=== PATIENT | male | born 1995 | race Caucasian/White ===

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

== ENCOUNTER 2017-07-26 19:34 | Inpatient (IN) | payer BC, OTHER ==
[~2017-07-26] VITALS: Ht 177.8 cm; Wt 67.5 kg
[~2017-07-26 19:34] MED LIST changes: -DEXT15TA PO; -DOXY100T PO; -IBUP800T23 PO
[2017-07-26 19:56] VITALS: BP 124/74; PULSE 76; RESP 16; TEMP 97.8; O2SAT 100
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
[2017-07-26 20:59] LABS: AUTOMATED NEUTROPHIL # 4.7 TH/MM3 (1.8-7.7); BASOPHIL % 0.6 % (0.0-2.0); EOSINOPHIL # 0.2 TH/MM3 (0-0.4); LYMPH % 28.4 % (9.0-44.0); LYMPHOCYTE # 2.2 TH/MM3 (1.0-4.8); MEAN CELL VOLUME 84.6 FL (80.0-100.0); MEAN CORPUSCULAR HGB CONC 34.3 % (32.0-36.0); MEAN PLATELET VOLUME 8.2 FL (7.0-11.0); MONO % 6.8 % (0.0-8.0); MONOCYTE # 0.5 TH/MM3 (0-0.9); NEUT % 61.2 % (16.0-70.0); PLATELET COUNT 224 TH/MM3 (150-450); RED BLOOD COUNT 4.84 MIL/MM3 (4.50-5.90); RED CELL DISTRIBUTION WIDTH 13.4 % (11.6-17.2); WHITE BLOOD COUNT 7.8 TH/MM3 (4.0-11.0)
[2017-07-26 21:06] LABS: ALBUMIN 4.6 GM/DL (3.4-5.0); AST (GOT) 24 U/L (15-39); BICARBONATE 24.9 MEQ/L (21.0-32.0); BLOOD UREA NITROGEN 25 MG/DL (7-18); CALCIUM 9.5 MG/DL (8.5-10.1); CHLORIDE 104 MEQ/L (98-107); CREATININE 1.02 MG/DL (0.60-1.30); GLOMERULAR FILTRATION RATE 93 ML/MIN (>89); GLUCOSE,RANDOM 86 MG/DL (74-106); SODIUM (NA) 136 MEQ/L (136-145)
[2017-07-26 21:08] LABS: ALT (GPT) 27 U/L (9-52)
[2017-07-26 21:17] LABS: ALKALINE PHOSPHATASE 76 U/L (45-117); TOTAL BILIRUBIN ADULT 1.8 MG/DL (0.2-1.0); TOTAL PROTEIN 7.4 GM/DL (6.4-8.2)
[2017-07-26] MEDS ORDERED: AMPH1TAB29 PO (22:23)
[2017-07-26 23:43] VITALS: BP 179/98; PULSE 70; RESP 16; TEMP 97.6; O2SAT 100
[2017-07-27] MEDS ORDERED: OLANZapine IM 10 MG VIAL IM ONE (02:00)
[2017-07-27 06:29] VITALS: RESP 17
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
[2017-07-27] MEDS ORDERED: diphenhydrAMINE HCL 50 MG CAP PO ONE (14:00)
[2017-07-27] MEDS ORDERED: OLANZapine 5 MG TAB PO ONE (14:00)
[2017-07-27] MEDS ORDERED: OLANZapine ODT 10 MG TAB PO ONE (14:00)
[2017-07-27 14:05] VITALS: BP 125/66; PULSE 86; RESP 18; O2SAT 100
[2017-07-27] MEDS ORDERED: ACETAMINOPHEN 325 MG TAB PO PRN (15:45)
[2017-07-27] MEDS ORDERED: MAGNESIUM HYDROXIDE SUSP 30 ML CUP PO PRN (15:45)
[2017-07-27] MEDS ORDERED: ALUMINUM/MAGNESIUM/SIMETH 30 ML CUP PO PRN (15:45)
[2017-07-27 17:31] VITALS: BP 149/83; PULSE 86; RESP 18; TEMP 97.5; O2SAT 98
[2017-07-28 05:55] VITALS: BP 147/87; PULSE 63; RESP 18; TEMP 98.6; O2SAT 100
[2017-07-28 07:52] LABS: BICARBONATE 29.9 MEQ/L (21.0-32.0); BLOOD UREA NITROGEN 19 MG/DL (7-18); CALCIUM 10.2 MG/DL (8.5-10.1); CHLORIDE 101 MEQ/L (98-107); CREATININE 0.98 MG/DL (0.60-1.30); GLOMERULAR FILTRATION RATE 98 ML/MIN (>89); GLUCOSE,RANDOM 94 MG/DL (74-106); SODIUM (NA) 137 MEQ/L (136-145)
[2017-07-28 07:53] LABS: CHOLESTEROL 131 MG/DL (120-200); TRIGLYCERIDES 78 MG/DL (42-150)
[2017-07-28 07:55] LABS: HDL CHOLESTEROL 62.2 MG/DL (40.0-60.0); LDL CHOLESTEROL 53 MG/DL (0-99)
[2017-07-28] MEDS ORDERED: INFLUENZA VIRUS VACCINE (QUADRIVALENT) 0.5 ML SYR IM ONE (09:00)
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
[2017-07-28 15:13] LABS: HEMOGLOBIN A1C 5.3 % (4.3-6.0)
[2017-07-28 16:58] VITALS: BP 167/79; PULSE 101
[2017-07-28 17:00] VITALS: BP 148/77; PULSE 95; RESP 19; TEMP 98.8; O2SAT 98
--- NOTE | 2017-07-28 18:17 | RADRPT ---
EXAM DATE/TIME: 07/28/2017 17:54 [facility] COMPARISON: No previous studies available for comparison. INDICATIONS : Psychosis. MEDICAL HISTORY : Asthma. SURGICAL HISTORY : None. ENCOUNTER: Subsequent ACUITY: 1 day PAIN SCORE: 0/10 LOCATION: cranial TECHNIQUE: Multiplanar, multisequence MRI of the brain was performed without contrast. FINDINGS: CEREBRUM: The ventricles are normal for age. No evidence of midline shift, mass lesion, hemorrhage or acute in farction. No extraaxial fluid collections are seen. The pituitary gland and suprasellar cistern are normal in configuration. WHITE MATTER: No significant signal abnormalities are seen in the white matter. POSTERIOR FOSSA: The cerebellum and brainstem are intact. The 4th ventricle is midline. The cerebellopontine angle is unremarkable. The cerebellar tonsils are normal in position. DIFFUSION IMAGING: No focal areas of restricted diffusion are seen. No evidence of acute infarction. EXTRACRANIAL: The visualized portions of the orbits and paranasal sinuses are unremarkable. CONCLUSION: No acute disease. Cale Hardy MD on July 28, 2017 at 18:12 Board Certified Radiologist. This report was verified electronically.
[2017-07-28] MEDS ORDERED: BENZTROPINE MESYLATE 1 MG TAB PO PRN (18:45)
[2017-07-28] MEDS ORDERED: BENZTROPINE MESYLATE 2 MG/2 ML VIAL IM PRN (18:45)
[2017-07-28] MEDS: diphenhydrAMINE HCL 50 MG CAP PO PRN (23:00)
[2017-07-28] MEDS: LORazepam 2 MG/ML VIAL IM PRN (23:30)
[2017-07-28] MEDS: LORazepam 1 MG TAB PO PRN (23:31)
[2017-07-29 05:51] VITALS: BP 110/66; PULSE 55; RESP 18; TEMP 98.8; O2SAT 95
--- NOTE | 2017-07-29 07:19 | MG ---
cc: MARISOL RIVERA MD Lab No: Date: Age: 22 Sex: M INDICATION The patient is a 22-year-old with history of schizophrenia and illicit drug use. DESCRIPTION Very high amplitude EEG, 20-70 microvolts. A lot of movement and myogenic artifact occurring. Then improved with posterior rhythm showing 8-9 Hz activity followed by eye movement and generalized movement artifact. A washcloth is then placed over his eyes which helped reduce the artifact. Generalized slowing transitioned into drowsy state. Waving his hands up in the air then put them down. No epileptic correlation. Generalized bursts of 3-4 Hz activity occurring at epoch 49. Almost a tiny spike wave complex, did not appear to be the case. A lot of head movement with artifact occurring with hyperventilation. Reasonably good driving with photic stimulation. Single lead EKG showing sinus rhythm. INTERPRETATION Mild to moderate artifact; however, relatively normal awake and drowsy EEG. Clinical correlation. Marisol Rivera MD MG/BT /9:24 PM /7:08 AM
--- NOTE | 2017-07-29 13:16 | EKG ---
Date Performed: 07/28/2017 Time Performed: 13:27:38 PTAGE: 22 years EKG: SINUS TACHYCARDIA Vertical QRS axis. Increased voltage. Atrial abnormality. Maybe within no rmal limits for age. When compared to previous tracing, axis is more vertical, and the Atrial abnorma lity is more prominant. Heart rate is slightly faster now. ABNORMAL ECG PREVIOUS TRACING : 10/17/2007 14.17 DOCTOR: Osman Zambrano Interpretating Date/Time 07/29/2017 13:15:36
--- NOTE | 2017-07-29 15:41 | PD.CONS ---
[facility] Requested By Psychiatry team Reason for Consult Abnormal EKG Primary Care Physician No Primary Care Physician Diagnoses: History of Present Illness Patient is a 22-year-old male with no significant primary history who came in under Ash act trying to get out of a moving vehicle. Patient has substance abuse disorder. Patient seen and examined he is now admitted to inpatient psychiatry unit for further evaluation. Consulted for abnormal EKG. Patient seen and examined today with tach at the bedside. Patient is very robotic with answers of yes or no to the question. Flat affect. States he has no other medical issues or surgical issues. Admits to smoking marijuana every day. Denies alcohol use. denies tobacco use. Denies pain and discomfort. Denies SOB/ dyspnea. Denies chest pain, palpitations, headaches, dizziness. Denies fevers, chills, n/v/d. Review of Systems ROS Limitations: Psychotic Past Family Social History Allergies: Coded Allergies: No Known Allergies (Verified Allergy, Unknown, 07/27/17) Past Medical History None Past Surgical History None Reported Medications Reported Meds & Active Scripts Active Reported Adderall (Amphetamine-Dextroamphetamine) 5 Mg Tab 5 Mg PO BID Avoid late evening doses. Space doses at least 4 to 6 hours if more than once/day dosing. Active Ordered Medications Current Medications Medications (Trade) Dose Ordered Sig/Haile Route Start Time Stop Time Status Last Admin (Tylenol) 650 mg Q4H PRN PO 07/27/17 15:45 (Milk Of Magnesia Liq) 30 ml DAILY PRN PO 07/27/17 15:45 (Mag-Al Plus Susp Liq) 30 ml Q6H PRN PO 07/27/17 15:45 (Ativan) 1 mg Q6H PRN PO 07/28/17 18:45 (Ativan Inj) 1 mg Q6H PRN IM 07/28/17 18:45 07/28/17 23:30 (Cogentin) 1 mg Q12HR PRN PO 07/28/17 18:45 (Cogentin Inj) 1 mg Q12HR PRN IM 07/28/17 18:45 (Benadryl) 50 mg HS PRN PO 07/28/17 18:45 07/28/17 23:00 Family History Denies any significant family medical history Social History Denies alcohol use Denies tobacco use Reports every day use of marijuana Physical Exam Vital Signs Vital Signs Date Time Temp Pulse Resp B/P (MAP) Pulse Ox O2 Delivery O2 Flow Rate FiO2 07/29/17 05:51 98.8 55 18 110/66 (81) 95 07/28/17 17:00 98.8 95 19 148/77 (100) 98 07/28/17 16:58 101 167/79 (108) Physical Exam GENERAL: This is a thin-appearing, well-developed patient, in no apparent distress. SKIN: No rashes, ecchymoses or lesions. Cool and dry. HEAD: Normocephalic. No temporal or scalp tenderness. EYES: Pupils equal round and reactive. Extraocular motions intact. No scleral icterus. No injection or drainage. ENT: Nose without bleeding. Throat without erythema. Uvula midline. Airway patent. NECK: Trachea midline. CARDIOVASCULAR: Regular rate and rhythm without murmurs, gallops, or rubs. RESPIRATORY: Clear to auscultation. Breath sounds equal bilaterally. No wheezes , rales, or rhonchi. GASTROINTESTINAL: Abdomen soft, non-tender, nondistended. No guarding. Bowel sounds active 4. MUSCULOSKELETAL: Extremities without clubbing, cyanosis, or edema. NEUROLOGICAL: Awake and alert. Flat affect. Cranial nerves II through XII intact. Motor and sensory grossly within normal limits. Speech appears to have Apraxia - Robot speech. Result Diagram: 07/26/17201907/28/17 0656 Imaging Last Impressions Brain MRI 07/28/17 0000 Signed Impressions: Service Date/Time: Friday, July 28, 2017 17:54 - CONCLUSION: No acute disease. Cale Hardy MD Assessment and Plan Problem List: (1) Cannabis abuse ICD Code: F12.10 - Cannabis abuse, uncomplicated (2) Psychosis ICD Code: F29 - Unspecified psychosis not due to a substance or known physiological condition Status: Acute Assessment and Plan Patient is a 22-year-old male with no significant primary history who came in under Ash act trying to get out of a moving vehicle. Patient has substance abuse disorder. Patient seen and examined he is now admitted to inpatient psychiatry unit for further evaluation. Consulted for abnormal EKG. Psychosis Marijuana use - Counseled - Managed by psychiatry team Abnormal EKG Tachycardia - Labs are within normal - TSH within normal - EKG reviewed sinus tachycardia, otherwise no ST changes noted, no QT prolongation noted - Will repeat EKG - Tachycardia may be related to substance withdrawal. Patient was also noted to have Adderall as part of his medication list however he is unable to tell what is for nor he has any other medical condition. - Monitor and f/u EKG. DVT prop ambulatory Code Status Full code Discussed Condition With Patient, nursing Problem Qualifiers (1) Psychosis: Qualified Codes: F29 - Unspecified psychosis not due to a substance or known physiological condition Odilia De Los Santos Jul 29, 2017 15:40
--- NOTE | 2017-07-29 17:22 | HHI.PYPN ---
Subjective Chief Complaint: Psychosis Remarks Is a request for second opinion. Admission note was reviewed and I agree with his history. Patient was seen and case was discussed with nursing. Patient remains bizarre in thought and behavior throughout the day. He makes bizarre hand movements during her interview and has a bizarre gait down the hallway. Patient says he also hears voices that began 2-3 days ago. He admits to smoking marijuana but denies other drugs. Not on antipsychotics at this time. Diagnosis is unclear. Mental Status Examination Appearance: Appropriate Consciousness: Alert Orientation: x4 Motor Activity: Normal gait Speech: Hesitant, Slow Language: Adequate Fund of Knowledge: Inadequate Attention and Concentration: Easily Distracted Memory: Impaired (poor historian) Mood: Other (reports unstable mood) Affect: Flat Thought Process & Associations: Other (slowed) Thought Content: Hallucinations, Thought blocking, Delusional Hallucination Type: Auditory (appears internally stimulated) Delusion Type: Other (ideas of reference, possibly episcopal delusions) Suicidal Ideation: No (unreliable to contract for safety) Suicidal Plan: No Suicidal Intention: No Homicidal Ideation: No (unreliable contract for safety) Homicidal Plan: No Homicidal Intention: No Insight: Poor Judgment: Poor Results Vitals/IOs Vital Signs Date Time Temp Pulse Resp B/P (MAP) Pulse Ox O2 Delivery O2 Flow Rate FiO2 07/29/17 05:51 98.8 55 18 110/66 (81) 95 07/27/17 14:05 Room Air Assessment & Plan Problem List: (1) 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 Criteria include acute psychosis Justification for Cont. Inpt. Patient would decompensate in a less restrictive setting Request HC Surrog/Guard Advoc?: Yes Miguel Rosa DO Jul 29, 2017 17:21
[2017-07-29 19:16] VITALS: BP 136/69; PULSE 96; RESP 17; TEMP 99.2; O2SAT 100
[2017-07-29] MEDS: diphenhydrAMINE HCL 50 MG CAP PO PRN (20:25)
[2017-07-29] MEDS: LORazepam 1 MG TAB PO PRN (23:35)
[2017-07-30 05:58] VITALS: BP 149/79; PULSE 86; RESP 16; TEMP 97.7
[2017-07-30] MEDS: CHOLECALCIFEROL (VIT D3) 1000 UNIT TAB PO SCH (09:41)
--- NOTE | 2017-07-30 12:03 | EKG ---
Date Performed: 07/29/2017 Time Performed: 17:46:08 PTAGE: 22 years EKG: SINUS TACHYCARDIA POSSIBLE RIGHT ATRIAL ENLARGEMENT LEFT VENTRICULAR HYPERTROPHY AND ST-T C HANGE ABNORMAL ECG Tracing may be within normal limits for a 22-year-old. Since PREVIOUS TRACING , no significant change noted. PREVIOUS TRACIN07/28/2017 13.27 DOCTOR: Osman Zambrano Interpretating Date/Time 07/30/2017 12:03:07
--- NOTE | 2017-07-30 14:26 | HHI.PR ---
Subjective Remarks Follow-up visit tachycardia. Patient seen and examined today. States he is doing well. Patient is a lot better in responding to questions and commands. Noted auditory hallucinations. Every time I asked question the patient would turn his head around and attempts to talk to somebody else. States that he has been taking Adderall since he was 19 years old and it did not really help him. States he uses it to help him focus. Admits to auditory hallucinations but does not want to elaborate what he is hearing. Denies pain and discomfort. Denies SOB/ dyspnea. Denies chest pain, palpitations, headaches, dizziness. Denies fevers, chills, n/v/d. Objective Vitals Vital Signs Date Time Temp Pulse Resp B/P (MAP) Pulse Ox O2 Delivery O2 Flow Rate FiO2 07/30/17 05:58 97.7 86 16 149/79 (102) 07/29/17 19:16 99.2 96 17 136/69 (91) 100 Result Diagram: 07/26/17201907/28/17 0656 Imaging Last Impressions Brain MRI 07/28/17 0000 Signed Impressions: Service Date/Time: Friday, July 28, 2017 17:54 - CONCLUSION: No acute disease. Cale Hardy MD Objective Remarks GENERAL: This is a well-nourished, well-developed patient, in no apparent distress. SKIN: Warm and dry HEENT: Normocephalic. Pupils equal round and reactive. Nose without bleeding. Airway patent. NECK: Trachea midline. No JVD. Supple. CARDIOVASCULAR: Regular rate and rhythm without murmurs, gallops, or rubs. RESPIRATORY: Clear to auscultation. Breath sounds equal bilaterally. No wheezes , rales, or rhonchi. GASTROINTESTINAL: Abdomen soft, non-tender, nondistended. Bowel Sounds normoactive x4. MUSCULOSKELETAL: Extremities without clubbing, cyanosis, or edema. NEUROLOGICAL: Awake and alert. Flat affect. No focal neuro deficit. Moves all extremities. Normal speech. A/P Problem List: (1) Cannabis abuse ICD Code: F12.10 - Cannabis abuse, uncomplicated (2) Psychosis ICD Code: F29 - Unspecified psychosis not due to a substance or known physiological condition Status: Acute Assessment and Plan Patient is a 22-year-old male with no significant primary history who came in under Ash act trying to get out of a moving vehicle. Patient has substance abuse disorder. Patient seen and examined he is now admitted to inpatient psychiatry unit for further evaluation. Consulted for abnormal EKG. Psychosis Marijuana use - Counseled - Managed by psychiatry team Abnormal EKG Tachycardia - Labs are within normal - TSH within normal - EKG reviewed sinus tachycardia, otherwise no ST changes noted, no QT prolongation noted - Tachycardia may be related to substance withdrawal. Patient was also noted to have Adderall as part of his medication list however he is unable to tell what is for nor he has any other medical condition. - Repeat EKG reviewed sinus tachycardia with no ST changes noted. No QT prolongation noted. - On exam patient is in sinus rhythm rate of 96. - Will clear patient for antipsychotic medication use. DVT prop ambulatory Discussed with patient, nursing, Dr. Guadarrama, Dr. Rosa Problem Qualifiers (1) Psychosis: Qualified Codes: F29 - Unspecified psychosis not due to a substance or known physiological condition Odilia De Los Santos Jul 30, 2017 14:26
--- NOTE | 2017-07-30 15:23 | HHI.PYPN ---
Subjective Chief Complaint: Psychosis Remarks Patient was seen and case discussed with nursing. Patient remains grossly psychotic with various bizarre delusions. Prominent thought blocking and is talking to voices during the interview. Continues a bizarre behavior including defecating on the floor and masturbating into a cup and carrying it around per nursing. Mental Status Examination Appearance: Appropriate Consciousness: Alert Orientation: x4 Motor Activity: Normal gait Speech: Hesitant, Slow Language: Adequate Fund of Knowledge: Inadequate Attention and Concentration: Easily Distracted Memory: Impaired (poor historian) Mood: Other (reports unstable mood) Affect: Flat Thought Process & Associations: Loose associations Thought Content: Hallucinations, Thought blocking, Delusional Hallucination Type: Auditory (appears internally stimulated) Delusion Type: Other (ideas of reference, possibly yarsani delusions) Suicidal Ideation: No (unreliable to contract for safety) Suicidal Plan: No Suicidal Intention: No Homicidal Ideation: No (unreliable contract for safety) Homicidal Plan: No Homicidal Intention: No Insight: Poor Judgment: Poor Results Labs Test 07/29/17 17:59 Erythrocyte Sedimentation Rate 1 mm/hr Ammonia 29 MCMOL/L Vitamin B12 Level 708 PG/ML 25-Hydroxy Vitamin D Total 24.0 ng/ML Vitals/IOs Vital Signs Date Time Temp Pulse Resp B/P (MAP) Pulse Ox O2 Delivery O2 Flow Rate FiO2 07/30/17 05:58 97.7 86 16 149/79 (102) 07/29/17 19:16 100 07/27/17 14:05 Room Air Assessment & Plan Problem List: (1) 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 Justification for Cont. Inpt. Patient would decompensate in a less restrictive setting Request HC Surrog/Guard Advoc?: Yes Miguel Rosa DO Jul 30, 2017 15:23
[2017-07-30] MEDS ORDERED: risperiDONE 1 MG TAB PO SCH (15:30)
[2017-07-30 17:30] VITALS: BP 143/78; PULSE 95; RESP 16; TEMP 99.7; O2SAT 98
[2017-07-30] MEDS: diphenhydrAMINE HCL 50 MG CAP PO PRN (20:50)
[2017-07-30] MEDS: risperiDONE 1 MG TAB PO SCH (20:50)
[2017-07-30] MEDS: LORazepam 2 MG/ML VIAL IM PRN (22:54)
[2017-07-31 05:48] VITALS: BP 106/65; PULSE 108; RESP 18; TEMP 97.5; O2SAT 98
[2017-07-31] MEDS: risperiDONE 1 MG TAB PO SCH ×2 (08:17→20:55)
[2017-07-31] MEDS: CHOLECALCIFEROL (VIT D3) 1000 UNIT TAB PO SCH (08:17)
--- NOTE | 2017-07-31 10:00 | HHI.PYPN ---
Subjective Chief Complaint: Psychosis Remarks Patient seen and examined with nurse. Chart reviewed. Case discussed with nursing staff who reports patient remains quite disorganized and psychotic. He is noted to be internally stimulated. He is reportedly somewhat oppositional and nursing interaction. Nursing staff notes that the patient has been wandering around with a cup of his bodily fluids including his semen. On my exam, patient remains quite disorganized. He appears internally stimulated. When I ask about hallucinations, he says he is hearing "natural things." No reported CAH. Behavior remains disorganized, and midway through our discussion , patient crouches on the floor for no reason. He denies HI but is noncommittal regarding SI. He does not report any urge to hurt himself on the inpatient psychiatric unit. No side effects from medications. No physical complaints. Spoke with patient's mother/healthcare surrogate over the phone. She notes that the patient seemed a little better Monday and then slid backwards Monday. We discussed titrating Risperdal to target psychotic symptoms and also to consider adding Ambien for sleep as patient is reportedly not sleeping terribly well with Benadryl. She would like to discuss the matter with patient' s father and get back to us. Review of Systems ROS Limitations: Psychotic, Poor Historian Except as stated in HPI: all other systems reviewed are Neg Mental Status Examination Appearance: Disheveled Consciousness: Alert Orientation: x4 Motor Activity: Normal gait, Other (no motor abnormalities noted) Speech: Hesitant, Slow Language: Adequate Fund of Knowledge: Inadequate Attention and Concentration: Easily Distracted Memory: Impaired (psychosis interferes) Mood: Other (calm) Affect: Flat Thought Process & Associations: Disorganized Thought Content: Hallucinations, Thought blocking, Delusional Hallucination Type: Auditory (remains internally stimulated) Delusion Type: Other (ideas of reference) Suicidal Ideation: No (noncommittal re: SI. No reported urge to hurt himself on the inpatient psychiatric unit.) Suicidal Plan: No Suicidal Intention: No Homicidal Ideation: No (unreliable contract for safety) Homicidal Plan: No Homicidal Intention: No Insight: Poor Judgment: Poor Results Labs Labs reviewed. FLAQUITO and serologies are still pending. Extended urine toxicology pending. 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 Recommend addition of Ambien for sleep to replace Benadryl. Continue to monitor on high acuity unit. Continue other medications and care as ordered. Justification for Cont. Inpt. Impairment in reality construction. Planned medication changes. High risk for decompensation in less restrictive environment. Discharge Planning Pending psychiatric stabilization. Case discussed with counselor. Request HC Surrog/Guard Advoc?: Yes Silvano Mitchell MD Jul 31, 2017 10:00
[2017-07-31] MEDS: LORazepam 1 MG TAB PO PRN ×2 (14:10→21:46)
[2017-07-31 15:49] LABS: HEPATITIS A AB IGM NEGATIVE (NEGATIVE); HEPATITIS B CORE AB IGM NEGATIVE (NEGATIVE); HEPATITIS B SURFACE ANTIGEN NEGATIVE (NEGATIVE); HEPATITIS C AB IgG NEGATIVE (NEGATIVE)
[2017-07-31 16:09] VITALS: BP 131/79; PULSE 101; RESP 18; TEMP 98.7; O2SAT 98
[2017-07-31 17:09] LABS: ANA SCREEN NEG (NEG)
[2017-08-01 05:43] VITALS: BP 123/64; PULSE 88; RESP 18; TEMP 98.5; O2SAT 100
[2017-08-01] MEDS: risperiDONE 1 MG TAB PO SCH ×2 (08:45→20:58)
[2017-08-01] MEDS: CHOLECALCIFEROL (VIT D3) 1000 UNIT TAB PO SCH (08:45)
--- NOTE | 2017-08-01 11:00 | HHI.PR ---
Subjective Remarks Follow up for tachycardia. The patient is seen in the day room. He has no medical complaints including no headache, lightheadedness, dizziness, chest pain , palpitations, or shortness of breath. He states he is upset and wants to be transferred to another unit. He states he is just "sick of these people". He denies any prior history or family history of arrhythmias. RN reports the patient mostly paces the halls and is typically upset. Suspect tachycardia secondary to intermittent agitation. No other medical complaints reported. Objective Vitals Vital Signs Date Time Temp Pulse Resp B/P (MAP) Pulse Ox O2 Delivery O2 Flow Rate FiO2 08/01/17 05:43 98.5 88 18 123/64 (83) 100 07/31/17 16:09 98.7 101 18 131/79 (96) 98 Result Diagram: 07/28/17 0656 Imaging Last Impressions Brain MRI 07/28/17 0000 Signed Impressions: Service Date/Time: Friday, July 28, 2017 17:54 - CONCLUSION: No acute disease. Cale Hardy MD Objective Remarks GENERAL: Well-nourished, well-developed young male patient in [facility]. SKIN: Warm and dry. No rash. HEENT: Normocephalic. Atraumatic. Pupils equal and round. Mucous membranes pink and moist. NECK: Supple. Trachea midline. CARDIOVASCULAR: Borderline tachycardic rate, regular rhythm. S1, S2 noted. No murmur appreciated. RESPIRATORY: No accessory muscle use. Clear to auscultation. Breath sounds equal bilaterally. GASTROINTESTINAL: Abdomen soft, non-tender, nondistended. Normoactive bowel sounds x4. MUSCULOSKELETAL: No obvious deformities. Extremities without clubbing, cyanosis , or edema. NEUROLOGICAL: Awake and alert. No obvious cranial nerve deficits. Motor grossly within normal limits. Normal speech. Medications and IVs Current Medications Medications (Trade) Dose Ordered Sig/Haile Route Start Time Stop Time Status Last Admin (Tylenol) 650 mg Q4H PRN PO 07/27/17 15:45 (Milk Of Magnesia Liq) 30 ml DAILY PRN PO 07/27/17 15:45 (Mag-Al Plus Susp Liq) 30 ml Q6H PRN PO 07/27/17 15:45 (Ativan) 1 mg Q6H PRN PO 07/28/17 18:45 08/01/17 12:59 (Ativan Inj) 1 mg Q6H PRN IM 07/28/17 18:45 07/30/17 22:54 (Cogentin) 1 mg Q12HR PRN PO 07/28/17 18:45 (Cogentin Inj) 1 mg Q12HR PRN IM 07/28/17 18:45 (Benadryl) 50 mg HS PRN PO 07/28/17 18:45 07/30/17 20:50 (Vitamin D3) 1,000 units DAILY PO 07/30/17 09:00 08/01/17 08:45 (risperDAL) 1 mg Q12HR PO 07/30/17 21:00 08/01/17 08:45 A/P Problem List: (1) Cannabis abuse ICD Code: F12.10 - Cannabis abuse, uncomplicated (2) Psychosis ICD Code: F29 - Unspecified psychosis not due to a substance or known physiological condition Status: Acute Assessment and Plan 22-year-old male with no significant medical history, admitted to inpatient psychiatry under Ash act after trying to get out of a moving vehicle. Patient has substance abuse disorder. Hospitalists consulted for abnormal EKG. Psychosis, Marijuana use -Counseled on cessation from all drugs -Continue management per psychiatry team Abnormal EKG, Tachycardia: intermittent tachycardia suspect secondary to intermittent agitation. Labs reviewed, all wnl. -EKG reviewed, shows sinus tachycardia, otherwise no ST changes noted, no QT prolongation -Tachycardia may be related to substance withdrawal, also previously on Adderall. -Repeat EKG reviewed sinus tachycardia with no ST changes noted. No QT prolongation noted. -Patient cleared for antipsychotic medication use. -Strongly suspect tachycardia secondary to intermittent agitation; also patient constantly ambulating halls -HR stable in the 90s DVT prophylaxis: patient is ambulatory Discharge Planning The patient is medically stable at this time, will sign off. Please contact [facility] or reconsult as needed. Problem Qualifiers (1) Psychosis: Qualified Codes: F29 - Unspecified psychosis not due to a substance or known physiological condition Kirstin Griggs PA-C Aug 01, 2017 11:00 am
--- NOTE | 2017-08-01 12:18 | HHI.PYPN ---
Subjective Chief Complaint: Psychosis Remarks Patient seen and examined with nurse. Chart reviewed. Patient is sleeping a little better and continues to eat well. Case discussed with nursing staff who reports patient remains bizarre. Nurse notes that patient's parents called back and are agreeable to titration of Risperdal. Case discussed in treatment team. On my exam, patient remains oddly related and internally stimulated. He endorses AH saying "we're gonna make you callahan." He denies questioning his sexuality and notes that he has a girlfriend. Makes odd statements at times, mentioning sign language apropos of nothing. Denies side effects from medications. No physical complaints. Review of Systems ROS Limitations: Psychotic, Poor Historian Except as stated in HPI: all other systems reviewed are Neg Mental Status Examination Appearance: Disheveled Consciousness: Alert Orientation: x4 Motor Activity: Normal gait, Other (no hand tremor, no cogwheeling, no other motoric abnormalities noted.) Speech: Hesitant, Slow Language: Adequate Fund of Knowledge: Inadequate Attention and Concentration: Easily Distracted Memory: Impaired (psychosis interferes) Mood: Other (calm) Affect: Flat Thought Process & Associations: Tangential Thought Content: Hallucinations, Thought blocking, Delusional Hallucination Type: Auditory (again internally stimulated) Delusion Type: Bizarre Suicidal Ideation: No (noncommittal re: SI. No reported urge to hurt himself on the inpatient psychiatric unit.) Suicidal Plan: No Suicidal Intention: No Homicidal Ideation: No (unreliable contract for safety) Homicidal Plan: No Homicidal Intention: No Insight: Poor Judgment: Poor Results Labs Labs reviewed. Only outstanding lab at this point is extended urine toxicology screen. Workup for organic causes of psychosis has been unrevealing. 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 Consulted the dietitian as I note the patient's BMI is fairly low. He does seem to be eating well though. Continue to monitor on the inpatient unit. Continue other medications and care as ordered. Justification for Cont. Inpt. Med changes. Impairment in reality construction. Risk for decompensation in less restrictive environment. Discharge Planning Pending psychiatric stabilization. Request HC Surrog/Guard Advoc?: Yes Silvano Mitchell MD Aug 01, 2017 12:17
[2017-08-01] MEDS: LORazepam 1 MG TAB PO PRN (12:59)
--- NOTE | 2017-08-01 14:34 | PD.TTN ---
Patient Problems 1. Discharge planning 2. Medication compliance 3. Knowledge deficit 4. Lack of coping skills Progress Toward Goals Provider Present: Dr. Martin Mitchell Provider Input: Pt remains psychotic and medication regiment is being adjusted including titration of Risperdal. Nurse(s) Present: Anaid Elena, RN Nurse(s) Input: Pt has been laughing inappropriately, bizarre, pleasant, cooperative and compliant with medication regiment. Psychiatric Counselors Present: SILVERIO Burns Psych Therapist Input: Pt continues to appear psychotic, bizarre, appropriate, cooperative and compliant with treatment. He presents with limited insight and judgment into condition and need for care. Pt presents with some level of coping and emotional regulation skills as he has had no outbursts on unit. He is compliant with medication regiment. Group Spec/RT/OT/ARTHUR Present: LAI Solares Group Spec/RT/OT/ARTHUR Input: Pt isolates to his room, needs encouragement to attend the group activities. Discharge Plan SMA Pt will return home with his family after discharge and will be linked to outpatient psychiatric follow up services. Documentation Scribe: SILVERIO Burns Jonathan LMHC Aug 01, 2017 14:34
[2017-08-01 18:12] VITALS: BP 121/67; PULSE 92; RESP 17; TEMP 98.7; O2SAT 99
[2017-08-02 05:39] VITALS: BP 138/75; PULSE 107; RESP 18; TEMP 97.8; O2SAT 100
[2017-08-02] MEDS: risperiDONE 1 MG TAB PO SCH ×2 (08:51→20:24)
[2017-08-02] MEDS: CHOLECALCIFEROL (VIT D3) 1000 UNIT TAB PO SCH (08:51)
--- NOTE | 2017-08-02 08:51 | HHI.PYPN ---
Subjective Chief Complaint: Psychosis Remarks Patient seen and examined with nurse. Chart reviewed. Case discussed with nursing staff. On my examination today, the patient remains internally preoccupied. He says that this is "just my conscience speaking some truths." When I asked what truths he is hearing he tells me "there is nothing going on now." He denies any SI or HI but seems unreliable to contract for safety. Affect remains quite flat. He is somewhat more relevant in conversation and is able to speak about his surfing hobby with the nurse a little bit. Denies side effects from medications. No physical complaints. Spoke with patient's father/healthcare surrogate Guillermo over the phone. We discussed patient's progress on the unit and treatment plan going forward. Father would like to see patient gets some chemical dependency treatment after acute psychiatric stabilization. Review of Systems ROS Limitations: Psychotic, Poor Historian Except as stated in HPI: all other systems reviewed are Neg Mental Status Examination Appearance: Disheveled Consciousness: Alert Orientation: x4 Motor Activity: Other (no motor abnormalities noted. No EPS.) Speech: Hesitant, Slow Language: Adequate Fund of Knowledge: Inadequate Attention and Concentration: Easily Distracted Memory: Unremarkable Mood: Other (calm) Affect: Flat Thought Process & Associations: Other (thought process somewhat more organized today) Thought Content: Hallucinations, Thought blocking Hallucination Type: Auditory (as noted above) Delusion Type: None Suicidal Ideation: No (unreliable to contract for safety) Suicidal Plan: No Suicidal Intention: No Homicidal Ideation: No (unreliable to contract for safety) Homicidal Plan: No Homicidal Intention: No Insight: Poor Judgment: Poor Results Labs Labs reviewed. Vitals/IOs Vital Signs Date Time Temp Pulse Resp B/P (MAP) Pulse Ox O2 Delivery O2 Flow Rate FiO2 08/02/17 05:39 97.8 107 18 138/75 (96) 100 Assessment & Plan Problem List: (1) Brief psychotic disorder ICD Codes: F23 - Brief psychotic disorder (2) Cannabis abuse ICD Codes: F12.10 - Cannabis abuse, uncomplicated Assessment & Plan Perhaps some modest response to Risperdal titration. Continue Risperdal 2mg BID with plans to titrate to 3mg BID tomorrow to target psychotic symptoms. Continue to monitor on the inpatient unit. Continue other medications and care as ordered. Justification for Cont. Inpt. Anticipated medication changes. Impairment in reality construction. Risk for decompensation and less restrictive environment. Discharge Planning [place] tomorrow. Pending psychiatric stabilization. Request HC Surrog/Guard Advoc?: Yes Silvano Mitchell MD Aug 02, 2017 08:51
[2017-08-02 16:46] VITALS: BP 126/61; PULSE 94; RESP 18; TEMP 97.3; O2SAT 100
[2017-08-03 06:08] VITALS: BP 142/79; PULSE 96; RESP 18; TEMP 97.6; O2SAT 99
[2017-08-03] MEDS: CHOLECALCIFEROL (VIT D3) 1000 UNIT TAB PO SCH (09:00)
[2017-08-03] MEDS: risperiDONE 1 MG TAB PO SCH (09:00)
--- NOTE | 2017-08-03 11:22 | HHI.PYPN ---
Subjective Chief Complaint: Psychosis Remarks Patient seen and case discussed with nursing staff. Chart reviewed. For me today, patient considerably more organized. Some vague responses. Some ongoing internal preoccupation. No SI or HI. No evident side effects from medications. Case presented to [place] and placed in continuance for 2 weeks by the election judge with father to serve as healthcare surrogate. Parents were present for [employer]. Review of Systems ROS Limitations: Psychotic, Poor Historian Other No physical complaints Mental Status Examination Appearance: Other (grooming is improved) Consciousness: Alert Orientation: x4 Motor Activity: Other (no abnormal motor movements noted) Speech: Unremarkable Language: Adequate (somewhat vague in content) Fund of Knowledge: Inadequate Attention and Concentration: Easily Distracted (improving) Memory: Unremarkable Mood: Other (calm) Affect: Flat Thought Process & Associations: Other (thought process somewhat more organized today) Thought Content: Hallucinations Hallucination Type: Other (internal preoccupation is decreasing) Delusion Type: None Suicidal Ideation: No (no SI voiced) Homicidal Ideation: No (no HI voiced) Insight: Poor Judgment: Poor Results Labs Labs reviewed. Extended urine toxicology positive only for cannabinoids. Vitals/IOs Vital Signs Date Time Temp Pulse Resp B/P (MAP) Pulse Ox O2 Delivery O2 Flow Rate FiO2 08/03/17 06:08 97.6 96 18 142/79 (100) 99 Assessment & Plan Problem List: (1) Brief psychotic disorder ICD Codes: F23 - Brief psychotic disorder (2) Cannabis abuse ICD Codes: F12.10 - Cannabis abuse, uncomplicated Assessment & Plan Titrate Risperdal to 3 mg twice daily to target psychosis. Continue to monitor on the inpatient unit although we will endeavor to transfer the patient to the lower acuity unit today if a bed is available. Continue other medications and care as ordered. Justification for Cont. Inpt. Med changes. Resolving impairment in reality construction. Risk for decompensation in less restrictive environment. Discharge Planning Pending psychiatric stabilization. Case discussed with counselor. Request HC Surrog/Guard Advoc?: Yes Silvano Mitchell MD Aug 03, 2017 11:21
[2017-08-03 16:45] VITALS: BP 157/71; PULSE 105; RESP 18; TEMP 98.3; O2SAT 98
[2017-08-03] MEDS: risperiDONE 3 MG TAB PO SCH (20:03)
[2017-08-04 05:37] VITALS: BP 117/67; PULSE 100; RESP 17; TEMP 97.9; O2SAT 98
[2017-08-04] MEDS: risperiDONE 3 MG TAB PO SCH ×2 (08:33→21:05)
[2017-08-04] MEDS: CHOLECALCIFEROL (VIT D3) 1000 UNIT TAB PO SCH (08:33)
--- NOTE | 2017-08-04 11:38 | HHI.PYPN ---
Subjective Chief Complaint: Psychosis Remarks Patient seen and examined with nurse. Chart reviewed. Case discussed with nursing staff who notes patient seems more aware of his surroundings. Case discussed in treatment team. Therapists note that the patient is more able to attend in groups with the benefit of treatment. On my examination today, the patient reports that he is feeling improved. He feels like he is clearer thinking. Mood is good, although affect remains fairly blunted. He denies audiovisual hallucinations. He denies suicidal or homicidal ideation. I have received a message from his father who is apparently trying to have the patient placed in a 90 day treatment program, perhaps for chemical dependency issues. I have discussed the possibility of such a placement with the patient, and he says that he would "rather just go home and chill." Denies side effects from medications. No physical complaints. I did try to reach out the patient's father/healthcare surrogate today. I left him a generic voicemail requesting a call back. Review of Systems ROS Limitations: Psychotic Except as stated in HPI: all other systems reviewed are Neg Mental Status Examination Appearance: Appropriate Consciousness: Alert Orientation: x4 Motor Activity: Other (no hand tremor, no cogwheeling, no dystonia, no dyskinesia, no other motor abnormalities noted.) Speech: Unremarkable Language: Adequate Fund of Knowledge: Adequate Attention and Concentration: Adequate Memory: Unremarkable Mood: Good Affect: Blunt Thought Process & Associations: Intact Thought Content: Appropriate Hallucination Type: None Delusion Type: None Suicidal Ideation: No Suicidal Plan: No Suicidal Intention: No Homicidal Ideation: No Homicidal Plan: No Homicidal Intention: No Insight: Poor Judgment: Poor Results Labs Labs reviewed. Vitals/IOs Vital Signs Date Time Temp Pulse Resp B/P (MAP) Pulse Ox O2 Delivery O2 Flow Rate FiO2 08/04/17 05:37 97.9 100 17 117/67 (20) 98 Assessment & Plan Problem List: (1) Brief psychotic disorder ICD Codes: F23 - Brief psychotic disorder (2) Cannabis abuse ICD Codes: F12.10 - Cannabis abuse, uncomplicated Assessment & Plan Continue Risperdal 3 mg twice daily as ordered for management of psychosis. Transfer to lower acuity unit today. Continue to monitor on an inpatient unit. Continue other medications and care as ordered. Justification for Cont. Inpt. Resolving impairments in reality construction. Risk for decompensation in less restrictive environment. Discharge Planning Pending psychiatric stabilization, possible discharge beginning or middle of next week. Request HC Surrog/Guard Advoc?: Yes Silvano Mitchell MD Aug 04, 2017 11:38
[2017-08-05 05:50] VITALS: BP 138/78; PULSE 107; RESP 18; TEMP 97.4; O2SAT 98
[2017-08-05] MEDS: CHOLECALCIFEROL (VIT D3) 1000 UNIT TAB PO SCH (10:28)
[2017-08-05] MEDS: risperiDONE 3 MG TAB PO SCH ×2 (10:28→20:28)
--- NOTE | 2017-08-05 17:01 | HHI.PYPN ---
Subjective Chief Complaint: Psychosis Remarks Pt seen and discussed with staff. He is compliant with medications and care. He attended therapeutic groups and visited with family today. No aggression or behavioral problems today. He denies SI/HI Mental Status Examination Appearance: Appropriate Consciousness: Alert Orientation: x4 Motor Activity: Other (no hand tremor, no cogwheeling, no dystonia, no dyskinesia, no other motor abnormalities noted.) Speech: Unremarkable Language: Adequate Fund of Knowledge: Adequate Attention and Concentration: Adequate Memory: Unremarkable Mood: Good Affect: Blunt Thought Process & Associations: Intact Thought Content: Appropriate Hallucination Type: None Delusion Type: None Suicidal Ideation: No Suicidal Plan: No Suicidal Intention: No Homicidal Ideation: No Homicidal Plan: No Homicidal Intention: No Insight: Poor Judgment: Poor Results Vitals/IOs Vital Signs Date Time Temp Pulse Resp B/P (MAP) Pulse Ox O2 Delivery O2 Flow Rate FiO2 08/05/17 05:50 97.4 107 18 138/78 (98) 98 Assessment & Plan Problem List: (1) Brief psychotic disorder ICD Codes: F23 - Brief psychotic disorder (2) Cannabis abuse ICD Codes: F12.10 - Cannabis abuse, uncomplicated Assessment & Plan Pt improving. continue current tx plan Estimated LOS: days Justification for Cont. Inpt. risk of decompensation Request HC Surrog/Guard Advoc?: Yes Sheree Robin MD Aug 05, 2017 17:01
[2017-08-05 18:00] VITALS: BP 133/72; PULSE 82; RESP 18; TEMP 98.2; O2SAT 99
[2017-08-06 05:36] VITALS: BP 106/55; PULSE 72; RESP 18; TEMP 98; O2SAT 98
[2017-08-06] MEDS: risperiDONE 3 MG TAB PO SCH ×2 (09:00→21:12)
[2017-08-06] MEDS: CHOLECALCIFEROL (VIT D3) 1000 UNIT TAB PO SCH (09:00)
--- NOTE | 2017-08-06 13:26 | HHI.PYPN ---
Subjective Chief Complaint: Psychosis Remarks Pt seen and discussed with staff. He has been withdrawn and in room most of the day, but did go out for fresh air today. He is flat with poor eye contact and appears at times to be internally stimulated. He c/o of anxiety Mental Status Examination Appearance: Appropriate Consciousness: Alert Orientation: x4 Motor Activity: Other (no hand tremor, no cogwheeling, no dystonia, no dyskinesia, no other motor abnormalities noted.) Speech: Unremarkable Language: Adequate Fund of Knowledge: Adequate Attention and Concentration: Adequate Memory: Unremarkable Mood: Anxious Affect: Blunt Thought Process & Associations: Intact Thought Content: Appropriate Hallucination Type: None Delusion Type: None Suicidal Ideation: No Suicidal Plan: No Suicidal Intention: No Homicidal Ideation: No Homicidal Plan: No Homicidal Intention: No Insight: Poor Judgment: Poor Results Vitals/IOs Vital Signs Date Time Temp Pulse Resp B/P (MAP) Pulse Ox O2 Delivery O2 Flow Rate FiO2 08/06/17 05:36 98.0 72 18 106/55 (72) 98 Intake and Output 08/06/17 08/06/17 08/07/17 08:00 16:00 00:00 Intake Total 240 ml 240 ml Balance 240 ml 240 ml Assessment & Plan Problem List: (1) Brief psychotic disorder ICD Codes: F23 - Brief psychotic disorder (2) Cannabis abuse ICD Codes: F12.10 - Cannabis abuse, uncomplicated Assessment & Plan Continue current tx plan. Estimated LOS: days Justification for Cont. Inpt. risk of decompensation Request HC Surrog/Guard Advoc?: Yes Sheree Robin MD Aug 06, 2017 13:26
[2017-08-06 18:40] VITALS: BP 123/61; PULSE 79; RESP 16; TEMP 98; O2SAT 100
[2017-08-07 06:00] VITALS: BP 105/65; PULSE 65; RESP 18; TEMP 97.5; O2SAT 99
[2017-08-07] MEDS: CHOLECALCIFEROL (VIT D3) 1000 UNIT TAB PO SCH (08:15)
[2017-08-07] MEDS: risperiDONE 3 MG TAB PO SCH ×2 (08:15→21:11)
--- NOTE | 2017-08-07 10:31 | HHI.PYPN ---
Subjective Chief Complaint: Psychosis Remarks Patient seen and examined with nurse. Chart reviewed. Case discussed with nursing staff. Case discussed with counselor. Received a note from patient's father who visited over the weekend to the effect that family has made arrangements for patient to enter the [facility] diagnosis treatment [place] middle of this week. On my examination today, the patient feels improved and says that he is "almost there" by which he means back to his baseline. Thought process linear. No internal stimulation. He says that the Risperdal is now "not as tiring." Denies side effects from medications. No physical complaints. Although he is not consenting for his medications, I did broach the possibility of a long-acting injectable with the patient and he seemed receptive. Discussed case with patient's father/healthcare surrogate over the phone. We discussed discharge planning. Father feels that patient is improved. We discussed addition of Cogentin for some mild EPS. Father would like to hold off on a long-acting injectable for now after discussion of the risks and benefits. Review of Systems Except as stated in HPI: all other systems reviewed are Neg Mental Status Examination Appearance: Appropriate Consciousness: Alert Orientation: x4 Motor Activity: Other (mild stiffness with some slight cogwheeling. No other motor abnormalities noted.) Speech: Unremarkable Language: Adequate Fund of Knowledge: Adequate Attention and Concentration: Adequate Memory: Unremarkable Mood: Appropriate Affect: Blunt (somewhat more reactive today) Thought Process & Associations: Intact Thought Content: Appropriate Hallucination Type: None Delusion Type: None Suicidal Ideation: No Suicidal Plan: No Suicidal Intention: No Homicidal Ideation: No Homicidal Plan: No Homicidal Intention: No Insight: Poor Judgment: Poor Results Labs Labs reviewed. Vitals/IOs Vital Signs Date Time Temp Pulse Resp B/P (MAP) Pulse Ox O2 Delivery O2 Flow Rate FiO2 08/07/17 06:00 97.5 65 18 105/65 (69) 99 Assessment & Plan Problem List: (1) Brief psychotic disorder ICD Codes: F23 - Brief psychotic disorder (2) Cannabis abuse ICD Codes: F12.10 - Cannabis abuse, uncomplicated Assessment & Plan Psychosis responding well to Risperdal. Add Cogentin 0.5mg BID for mild EPS. Continue Risperdal as ordered. Continue to monitor on the inpatient unit. Continue other medications and care as ordered. Justification for Cont. Inpt. Risk for decompensation in less restrictive environment. Discharge Planning [facility]. Request HC Surrog/Guard Advoc?: Yes Silvano Mitchell MD Aug 07, 2017 10:31
[2017-08-07] MEDS ORDERED: PILL SPLITTER OTHER PRN (10:45)
[2017-08-07] MEDS: BENZTROPINE MESYLATE 1 MG TAB PO SCH ×2 (12:01→21:11)
[2017-08-07 17:12] VITALS: BP 110/62; PULSE 70; RESP 20; TEMP 98.4; O2SAT 98
[2017-08-08 05:46] VITALS: BP 104/70; PULSE 69; RESP 16; TEMP 98.2; O2SAT 99
[2017-08-08] MEDS: BENZTROPINE MESYLATE 1 MG TAB PO SCH (09:02)
[2017-08-08] MEDS: CHOLECALCIFEROL (VIT D3) 1000 UNIT TAB PO SCH (09:02)
[2017-08-08] MEDS: risperiDONE 3 MG TAB PO SCH (09:02)
[2017-08-08] MEDS ORDERED: Benztropine PO (12:08)
[2017-08-08] MEDS ORDERED: RISP3 PO (12:08)
[2017-08-08] MEDS ORDERED: CHOL1000 PO (12:08)
--- NOTE | 2017-08-08 12:08 | HHI.DS ---
Psychiatry Discharge Summary Inpatient Psychiatric care?: Yes Advance Directive: No Reason Not Provided: Due to Patient Condition Mental Health AdvanceDirective: No Health Care Proxy: No Admission Admission Date Jul 27, 2017 at 15:42 Admission Diagnosis: (1) Brief psychotic disorder ICD Code: F23 - Brief psychotic disorder (2) Cannabis abuse ICD Code: F12.10 - Cannabis abuse, uncomplicated Brief History Mr. Barron is a 22-year-old male with no previously diagnosed psychiatric history who presented under a [place] by [employer]AN alleging that patient seemed to be under the influence of a substance and tried to jump out of his father's car. Patient was evaluated by the psychiatric nurse practitioner who admitted the patient to the inpatient psychiatric unit. Reviewing the electronic medical record, I see no previous psychiatric contact within our system. Patient seen and examined with nurse. Chart reviewed. Case discussed with nursing staff. On my examination today, the patient presents as wandering around the unit in a dream-like state. He appears internally preoccupied, although he denies AVH. He does exhibit a taoist preoccupation and is reading aloud from the bible. He is echolalic at times. He is a fairly vague historian. When I ask him about the circumstances of his presentation here, the patient says "that's the part that gets indecisive." He reports that he has been sleeping poorly for the last 3 days. Appetite is fair. He does endorse some ideas of reference. When I ask about paranoia, patient says "that' s indecisive." He feels as though his mood has been unstable, although his affect is fairly flat. He endorses hopelessness and worthlessness. His concentration is "so off." He does admit to abusing stimulants in an effort to improve concentration. He denies any SI or HI but seems unreliable to contract for safety in his present state. Remainder of the psychiatric ROS is negative. No physical complaints at this time. Tobacco Use In Past 30 Days: No Tobacco Past 30 Days Alcohol Use: Never Hospital Course Patient was admitted to a locked, inpatient psychiatric unit. A general medical consultation was obtained. Appropriate precautions were in place throughout patient's hospital stay. Patient was seen and examined on the unit by psychiatry and also visited by counselor. A first break psychosis workup was undertaken and was unrevealing for organic cause of patient's presenting psychiatric symptomatology, besides possibly his substance use. Psychotropic medications were adjusted. Patient tolerated medications well without side effects besides experiencing some mild EPS from Risperdal, managed with Cogentin. Patient had improvement in presenting psychiatric symptomatology during the course of his hospital stay. There was no evidence of any suicidality or homicidality on the inpatient unit. The patient's behavior improved with the benefit of psychopharmacologic treatment. He was uneventfully transitioned from the higher acuity unit to lower acuity unit, and he was able to tolerate the lower acuity unit's milieu. Family working with counselor have arranged for placement in residential treatment facility[facility], and counselor informs me that the patient may be discharged there today. On the day of discharge: Patient seen and examined with nurse practitioner. Chart reviewed. Case discussed with nursing staff. No behavioral issues noted overnight. Case discussed in treatment team. On my examination today, the patient feels ready to leave the hospital and go to residential treatment program. He denies any suicidal or homicidal ideation, intent or plan on direct questioning and contracts for safety. He denies any audiovisual hallucinations. I can elicit no delusional material. There is no evidence of any ongoing impairment in reality construction. I can elicit no depressive or hypomanic/manic symptoms presently. He denies any side effects from medications and notes that the fatigue that he had been experiencing with the Risperdal has worn off. He does have some residual but improved cogwheeling on my examination today following initiation of Cogentin 0.5 mg twice daily, and so I have titrated Cogentin on discharge to 1 mg twice daily. He has no physical complaints. Suicide and violence risk assessment on day of discharge both suggest lower imminent risk, and the patient's level of function is adequate for planned level of outpatient care. The patient has maximized benefit from this inpatient psychiatric hospital stay and will be discharged today to residential treatment facility with psychiatric follow-up through that facility. Patient is also to follow-up with primary care. I have counseled the patient to abstain from abuse of substances going forward and recommended ongoing chemical dependency treatment on an outpatient basis. I have counseled the patient regarding warning signs for need to return to the psychiatric emergency room as part of the general safety plan. Results Blood Pressure 104 / 70 Vital Signs Date Time Temp Pulse Resp B/P (MAP) Pulse Ox O2 Delivery O2 Flow Rate FiO2 08/08/17 05:46 98.2 69 16 104/70 (81) 99 Laboratory Results Test 07/28/17 06:56 Cholesterol Level 131 MG/DL (120-200) HDL Cholesterol 62.2 MG/DL (40.0-60.0) Hemoglobin A1c 5.3 % (4.3-6.0) LDL Cholesterol 53 MG/DL (0-99) Triglycerides Level 78 MG/DL (42-150) Summary of Procedures EEG performed Imaging Last Impressions Brain MRI 07/28/17 0000 Signed Impressions: Service Date/Time: Friday, July 28, 2017 17:54 - CONCLUSION: No acute disease. Cale Hardy MD Pending results at discharge: No Medications # of Antipsychotic meds at D/C: 1 Approp Antipsych med options 1 - Minimum of three failed multiple trials of monotherapy. 2 - Documented plan to taper to monotherapy due to previous use of multiple meds OR cross-taper in progress at D/C. 3 - Documentation of augmentation of Clozapine. 4 - Justification other than those listed in allowable values 1-3, document here : Discharge Discharge Date: Aug 08, 2017 Discharge Diagnosis: (1) Brief psychotic disorder Diagnosis: Principal (stabilized) ICD Code: F23 - Brief psychotic disorder (2) Cannabis abuse Diagnosis: Secondary (counseled to quit) ICD Code: F12.10 - Cannabis abuse, uncomplicated Pt Condition on Discharge: Stable Discharge Disposition: Disc to Psych Care Fac Discharge Instructions Diet Instructions: As Tolerated, No Restrictions Activities you can perform: Weight Bearing as Nora Scheduled Appointment: psychiatric follow-up through residential treatment program New Orders: VITAMIN D,25-HYDROXY - 2 Months New Medications: Cholecalciferol (Gnp Vitamin D3 Extra Stre) 1,000 Unit Tab 1000 UNITS PO DAILY for Nutritional Supplement for 15 Days, TAB 1 Refill Risperidone (Risperdal) 3 Mg Tab 3 MG PO Q12HR for MENTAL HEALTH for 15 Days, TAB 1 Refill [Benztropine] () 1 MG TAB 1 MG PO Q12HR for SIDE EFFECT MANAGEMENT for 15 Days, 1 Refill Discontinued Medications: Amphetamine-Dextroamphetamine (Adderall) 5 Mg Tab 5 MG PO BID for Hyperactivity Control, #60 TAB 0 Refills Avoid late evening doses. Space doses at least 4 to 6 hours if more than once/day dosing. Discharge Time > 30 minutes Mental Status Examination Appearance: Appropriate Consciousness: Alert Orientation: x4 Motor Activity: Other (decreased stiffness and decreased cogwheeling with Cogentin. No dystonias or dyskinesias noted. No other motoric abnormalities noted.) Speech: Unremarkable Language: Adequate Fund of Knowledge: Adequate Attention and Concentration: Adequate Memory: Unremarkable Mood: Appropriate Affect: Other (remains somewhat blunted but overall more full and reactive versus earlier in the hospital stay) Thought Process & Associations: Intact, Logical, Goal directed, Linear Thought Content: Appropriate Hallucination Type: None Delusion Type: None Suicidal Ideation: No Suicidal Plan: No Suicidal Intention: No Homicidal Ideation: No Homicidal Plan: No Homicidal Intention: No Insight: Fair Judgment: Adequate (fair) Discharge/Advance Care Plan Health Problems: (1) Brief psychotic disorder (2) Cannabis abuse Goals to promote your health * To prevent worsening of your condition and complications * To maintain your health at the optimal level Directions to meet your goals Take your medications as prescribed Follow your dietary instruction Follow activity as directed Keep your appointments as scheduled Take your immunizations and boosters as scheduled If your symptoms worsen call your PCP, if no PCP go to Urgent Care Center or Emergency Room For 16/01 questions related to your inpatient stay or results of tests pending at discharge, please contact Dr. Silvano Mitchell at Smoking is Dangerous to Your Health. Avoid second hand smoking Silvano Mitchell MD Aug 08, 2017 12:08
--- NOTE | 2017-08-08 14:42 | PD.TTN ---
Patient Problems 1. Discharge planning 2. Medication compliance 3. Knowledge deficit 4. Lack of coping skills Progress Toward Goals Provider Present: Dr. Martin Mitchell Provider Input: Pt remains psychotic and medication regiment is being adjusted including titration of Risperdal. 08/08- Pt has shown improvement and will be discharged today to [facility] treatment center. Nurse(s) Present: Anaid Elena RN Nurse(s) Input: Pt has been laughing inappropriately, bizarre, pleasant, cooperative and compliant with medication regiment. Psychiatric Counselors Present: SILVERIO Burns Psych Therapist Input: Pt continues to appear psychotic, bizarre, appropriate, cooperative and compliant with treatment. He presents with limited insight and judgment into condition and need for care. Pt presents with some level of coping and emotional regulation skills as he has had no outbursts on unit. He is compliant with medication regiment. 08/08- Pt will be discharged to [facility] for further treatment. Group Spec/RT/OT/ARTHUR Present: LAI Solares Group Spec/RT/OT/ARTHUR Input: Pt isolates to his room, needs encouragement to attend the group activities. 08/08- LAI Solares Pt has been attending the group activities with good participation. Discharge Plan SMA Pt will return home with his family after discharge and will be linked to outpatient psychiatric follow up services. Documentation Scribe: SILVERIO Burns Jonathan LMHC Aug 08, 2017 14:42
[2017-08-08] MEDS ORDERED: BENZTROPINE MESYLATE 1 MG TAB PO SCH (21:00)
== END 2017-08-08 16:10 | DRG 885 ==
LOC: NEPD 19:34 → NEDA 07-27 15:42 → H270 07-27 17:24 → NEDA 07-27 20:14 → H270 07-28 06:14 → H260 08-04 14:35
PROVIDERS: ADMIT Psychiatry & Neurology Psychiatry; ATTEND Psychiatry & Neurology Psychiatry
DX: F23 Brief psychotic disorder (principal); D84.9 Immunodeficiency, unspecified; F90.9 Attention-deficit hyperactivity disorder, unspecified type; F12.10 Cannabis abuse, uncomplicated; J45.909 Unspecified asthma, uncomplicated; R48.8 Other symbolic dysfunctions; R00.0 Tachycardia, unspecified; R94.31 Abnormal electrocardiogram [ECG] [EKG]; Z81.8 Family history of other mental and behavioral disorders
CPT/HCPCS: 70551; 80048; 80053; 80061; 80074; 80307; 82140; 82306; 82607; 83036; 84443; 85025; 85652; 86038; 86592; 86703; 93005; 95819; 96372; G0481; J2060; Q0163

== ENCOUNTER 2017-08-17 16:27 | Emergency (ER) | payer BC, OTHER ==
[~2017-08-17] VITALS: Ht 182.9 cm; Wt 70.0 kg
[~2017-08-17 16:27] MED LIST changes: +Benztropine PO; +CHOL1000 PO; -DOXY100C PO; -NORC5TAB PO; +RISP3 PO
[2017-08-17 16:55] VITALS: BP 117/66; PULSE 84; RESP 16; TEMP 98.7; O2SAT 98
[2017-08-17 18:05] LABS: AUTOMATED NEUTROPHIL # 6.7 TH/MM3 (1.8-7.7); BASOPHIL % 0.3 % (0.0-2.0); EOSINOPHIL # 0.2 TH/MM3 (0-0.4); HEMATOCRIT 43.3 % (39.0-51.0); HEMOGLOBIN 15.2 GM/DL (13.0-17.0); LYMPH % 23.5 % (9.0-44.0); LYMPHOCYTE # 2.4 TH/MM3 (1.0-4.8); MEAN CELL VOLUME 85.2 FL (80.0-100.0); MEAN CORPUSCULAR HEMOGLOBIN 29.8 PG (27.0-34.0); MEAN PLATELET VOLUME 8.1 FL (7.0-11.0); MONO % 7.2 % (0.0-8.0); MONOCYTE # 0.7 TH/MM3 (0-0.9); PLATELET COUNT 208 TH/MM3 (150-450); RED BLOOD COUNT 5.09 MIL/MM3 (4.50-5.90); WHITE BLOOD COUNT 10.1 TH/MM3 (4.0-11.0)
[2017-08-17 18:29] LABS: ALT (GPT) 28 U/L (9-52)
[2017-08-17 18:37] VITALS: BP 135/75; PULSE 97; RESP 18; TEMP 99.4; O2SAT 97
[2017-08-17 18:39] LABS: ALKALINE PHOSPHATASE 68 U/L (45-117); TOTAL BILIRUBIN ADULT 0.7 MG/DL (0.2-1.0); TOTAL PROTEIN 7.8 GM/DL (6.4-8.2)
[2017-08-17] MEDS ORDERED: INVE1.5T (18:55)
[2017-08-17 19:05] LABS: ALBUMIN 4.7 GM/DL (3.4-5.0); AST (GOT) 24 U/L (15-39); BICARBONATE 32.1 MEQ/L (21.0-32.0); BLOOD UREA NITROGEN 19 MG/DL (7-18); CALCIUM 9.5 MG/DL (8.5-10.1); CHLORIDE 102 MEQ/L (98-107); CREATININE 1.18 MG/DL (0.60-1.30); GLOMERULAR FILTRATION RATE 79 ML/MIN (>89); GLUCOSE,RANDOM 93 MG/DL (74-106); SODIUM (NA) 139 MEQ/L (136-145)
[2017-08-17 19:07] LABS: ACETAMINOPHEN LESS THAN 2.0 MCG/ML (10.0-30.0)
[2017-08-17] MEDS ORDERED: PALI1TAB3 PO (20:24)
[2017-08-17] MEDS ORDERED: PALI1TAB4 PO (20:24)
--- NOTE | 2017-08-17 20:28 | PD ---
HPI Chief Complaint: Psychiatric Symptoms Time Seen by Provider: 19:21 Travel History International Travel<30 days: No Contact w/Intl Traveler<30days: No Traveled to known affect area: No History of Present Illness HPI 22-year-old white male presents to emergency department on a voluntary basis for psychological evaluation. He states that for the last 40 days he has been feeling anxious and has PTSD from his chart right.. He has not been himself. He is not suicidal homicidal. Patient has had a history of substance abuse with marijuana. He does continue to use CBD oil. 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) Psychiatric: Yes (Reported hx of treatment for Schizophrenia) Respiratory: Yes (STATES ASTHMA A CHILD) Immunizations Current: Yes Influenza Vaccination: No Past Surgical History Surgical History: No Previous Surgery Social History Alcohol Use: No Tobacco Use: Yes (2 ppd cigarettes) Substance Use: Yes (marajuana daily; 2 ppd cigarettes) Allergies-Medications (Allergen,Severity, Reaction): Coded Allergies: No Known Allergies (Verified Allergy, Unknown, 08/17/17) Reported Meds & Prescriptions Reported Meds & Active Scripts Active Reported Paliperidone ER 9 Mg Tab 9 Mg PO DAILY Review of Systems General / Constitutional: No: Fever Eyes: No: Visual changes HENT: No: Headaches Cardiovascular: No: Chest Pain or Discomfort Respiratory: No: Shortness of Breath Gastrointestinal: No: Abdominal Pain Genitourinary: No: Dysuria Musculoskeletal: No: Pain Skin: No Rash Neurologic: No: Weakness Psychiatric: Positive: Depression, Mood Disorder, Substance Abuse, No: Anxiety , Suicidal Ideations, Disorder of Thought, Homicidal Ideation Endocrine: No: Polydipsia Hematologic/Lymphatic: No: Easy Bruising Physical Exam Narrative GENERAL: Well-nourished, well-developed patient. SKIN: Warm and dry. HEAD: Normocephalic and atraumatic. EYES: No scleral icterus. No injection or drainage. ENT: No nasal drainage noted. Mucous membranes pink. Airway patent. NECK: Supple, trachea midline. Moves head freely without obvious discomfort. CARDIOVASCULAR: Regular rate and rhythm without murmurs, gallops, or rubs. RESPIRATORY: Breath sounds equal bilaterally. No accessory muscle use. GASTROINTESTINAL: Abdomen soft, non-tender, nondistended. EXTREMITIES: No cyanosis or edema. BACK: Nontender without obvious deformity. No CVA tenderness. NEURO: Patient is alert and oriented. no sensorimotor deficits. Nonfocal. Normal speech. PSYCH: No delusions. No auditory or visual hallucinations. Data Data Last Documented VS Vital Signs Date Time Temp Pulse Resp B/P (MAP) Pulse Ox O2 Delivery O2 Flow Rate FiO2 08/17/17 18:37 99.4 97 18 135/75 (95) 97 Room Air Orders Orders Complete Blood Count With Diff (08/17/17 17:16) Comprehensive Metabolic Panel (08/17/17 17:16) Thyroid Stimulating Hormone (08/17/17 17:16) Psych Screen (08/17/17 17:16) Drug Screen, Random Urine (08/17/17 17:16) Alcohol (Ethanol) (08/17/17 17:16) Salicylates (Aspirin) (08/17/17 17:16) Tylenol (Acetaminophen) (08/17/17 17:16) Diet Regular Basic (08/17/17 Dinner) Labs Laboratory Tests Test 08/17/17 17:40 08/17/17 17:45 Urine Opiates Screen NEG Urine Barbiturates Screen NEG Urine Amphetamines Screen NEG Urine Benzodiazepines Screen NEG Urine Cocaine Screen NEG Urine Cannabinoids Screen NEG White Blood Count 10.1 TH/MM3 Red Blood Count 5.09 MIL/MM3 Hemoglobin 15.2 GM/DL Hematocrit 43.3 % Mean Corpuscular Volume 85.2 FL Mean Corpuscular Hemoglobin 29.8 PG Mean Corpuscular Hemoglobin Concent 35.0 % Red Cell Distribution Width 14.0 % Platelet Count 208 TH/MM3 Mean Platelet Volume 8.1 FL Neutrophils (%) (Auto) 67.0 % Lymphocytes (%) (Auto) 23.5 % Monocytes (%) (Auto) 7.2 % Eosinophils (%) (Auto) 2.0 % Basophils (%) (Auto) 0.3 % Neutrophils # (Auto) 6.7 TH/MM3 Lymphocytes # (Auto) 2.4 TH/MM3 Monocytes # (Auto) 0.7 TH/MM3 Eosinophils # (Auto) 0.2 TH/MM3 Basophils # (Auto) 0.0 TH/MM3 CBC Comment DIFF FINAL Differential Comment Blood Urea Nitrogen 19 MG/DL Creatinine 1.18 MG/DL Random Glucose 93 MG/DL Total Protein 7.8 GM/DL Albumin 4.7 GM/DL Calcium Level 9.5 MG/DL Alkaline Phosphatase 68 U/L Aspartate Amino Transf (AST/SGOT) 24 U/L Alanine Aminotransferase (ALT/SGPT) 28 U/L Total Bilirubin 0.7 MG/DL Sodium Level 139 MEQ/L Potassium Level 4.1 MEQ/L Chloride Level 102 MEQ/L Carbon Dioxide Level 32.1 MEQ/L Anion Gap 5 MEQ/L Estimat Glomerular Filtration Rate 79 ML/MIN Thyroid Stimulating Hormone 3rd Gen 2.700 uIU/ML Salicylates Level LESS THAN 1.7 MG/DL Acetaminophen Level LESS THAN 2.0 MCG/ML Ethyl Alcohol Level LESS THAN 3 MG/DL MDM Medical Decision Making Medical Screen Exam Complete: Yes Emergency Medical Condition: Yes Medical Record Reviewed: Yes Interpretation(s) Laboratory Tests Test 08/17/17 17:40 08/17/17 17:45 Urine Opiates Screen NEG Urine Barbiturates Screen NEG Urine Amphetamines Screen NEG Urine Benzodiazepines Screen NEG Urine Cocaine Screen NEG Urine Cannabinoids Screen NEG White Blood Count 10.1 TH/MM3 Red Blood Count 5.09 MIL/MM3 Hemoglobin 15.2 GM/DL Hematocrit 43.3 % Mean Corpuscular Volume 85.2 FL Mean Corpuscular Hemoglobin 29.8 PG Mean Corpuscular Hemoglobin Concent 35.0 % Red Cell Distribution Width 14.0 % Platelet Count 208 TH/MM3 Mean Platelet Volume 8.1 FL Neutrophils (%) (Auto) 67.0 % Lymphocytes (%) (Auto) 23.5 % Monocytes (%) (Auto) 7.2 % Eosinophils (%) (Auto) 2.0 % Basophils (%) (Auto) 0.3 % Neutrophils # (Auto) 6.7 TH/MM3 Lymphocytes # (Auto) 2.4 TH/MM3 Monocytes # (Auto) 0.7 TH/MM3 Eosinophils # (Auto) 0.2 TH/MM3 Basophils # (Auto) 0.0 TH/MM3 CBC Comment DIFF FINAL Differential Comment Blood Urea Nitrogen 19 MG/DL Creatinine 1.18 MG/DL Random Glucose 93 MG/DL Total Protein 7.8 GM/DL Albumin 4.7 GM/DL Calcium Level 9.5 MG/DL Alkaline Phosphatase 68 U/L Aspartate Amino Transf (AST/SGOT) 24 U/L Alanine Aminotransferase (ALT/SGPT) 28 U/L Total Bilirubin 0.7 MG/DL Sodium Level 139 MEQ/L Potassium Level 4.1 MEQ/L Chloride Level 102 MEQ/L Carbon Dioxide Level 32.1 MEQ/L Anion Gap 5 MEQ/L Estimat Glomerular Filtration Rate 79 ML/MIN Thyroid Stimulating Hormone 3rd Gen 2.700 uIU/ML Salicylates Level LESS THAN 1.7 MG/DL Acetaminophen Level LESS THAN 2.0 MCG/ML Ethyl Alcohol Level LESS THAN 3 MG/DL Differential Diagnosis MDM: High Differential diagnoses: Schizophrenia, schizoaffective disorder, bipolar, anxiety, depression, adjustment reaction, mood disorder NOS, ODD, depressive disorder NOS, dementia, dementia with agitation, psychosis NOS, substance induced mood disorder, DMDD, Asperger syndrome, infection,electrolyte abnormality, malingering. Narrative Course Mental health screening discussed with the patient. Psychiatric screen ordered. The patient has been medically cleared. This is medical clearance for psychiatric admission Diagnosis Primary Impression: Medical clearance for psychiatric admission Condition: Stable Juice Dwyer Aug 17, 2017 20:28
[2017-08-17] MEDS ORDERED: INVE9TAB PO (21:22)
[2017-08-17] MEDS ORDERED: PALIPERIDONE ER 9 MG TAB PO ONE (21:30)
[2017-08-17] MEDS ORDERED: PALIPERIDONE ER 3 MG TAB PO ONE (21:45)
== END 2017-08-17 22:57 | disposition home or self-care (01) ==
LOC: NEPJ 16:27
DX: F43.10 Post-traumatic stress disorder, unspecified (principal); F90.9 Attention-deficit hyperactivity disorder, unspecified type; F17.210 Nicotine dependence, cigarettes, uncomplicated; F12.10 Cannabis abuse, uncomplicated
CPT/HCPCS: 80053; 80307; 84443; 85025; 99283